=== PATIENT | male | born 1960 | race African-American/Black ===

== ENCOUNTER 2020-02-26 18:05 | Inpatient (IN) ==
[2020-02-26] MEDS ORDERED: SODIUM CHLORIDE 0.9% 1,000 ML IV STA ×2 (18:21→21:50)
[2020-02-26] MEDS ORDERED: LABETALOL 20 MG/4 ML SYRINGE IV STA ×2 (18:28→22:29)
[2020-02-26 20:22] LABS: Basophils % 0.2 % (0.0-0.8); Hematocrit 39.4 VOL% (42.0-52.0); Immature Granulocytes % 1.1 %; Immature Granulocytes Absolute 0.09 #; Lymphocytes # 0.4 10*3/uL (1.4-4.0); Lymphocytes % 4.7 % (21.2-54.2); Mean Corpuscular Volume 94.9 FL (87-102); Monocytes % 11.4 % (1.7-12.7); Neutrophils % 82.6 % (38.7-73.9); Platelet Count 130 T/CUMM (130-400); Red Blood Count 4.15 MC/CUMM (3.8-5.5); Red Cell Distribution Width 18.3 % (9.3-17.3); White Blood Count 8.2 T/CUMM (4-12)
[2020-02-26 20:38] LABS: Bacteria,Urine Occasional /HPF (Few); Bilirubin,Urine Negative (Negative); Blood, Urine Small mg/dL (Negative); Glucose,Urine (UA) >=500 mg/dL (Negative); Hyaline Casts,Urine 28 /LPF (0-3); Ketones,Urine 20 mg/dL (Negative); Mucus,Urine Occasional /LPF (Occasional); Nitrite,Urine Negative (Negative); Protein,Urine >=500 MG/DL; RBC,Urine 1 /HPF (0-4); Urine Appearance Slightly Hazy (Clear); Urine Color Yellow (Yellow); Urine Specific Gravity 1.016 (1.001-1.035); Urine Urobilinogen < 2.0 EU/DL (0.2-1.0); WBC,Urine 5 /HPF (0-6)
[2020-02-26] MEDS ORDERED: LORazepam 2 MG/1 ML VIAL ONE (20:40)
[2020-02-26] MEDS ORDERED: LORazepam 2 MG/1 ML VIAL IM STA (20:42)
[2020-02-26] MEDS ORDERED: LORazepam 2 MG/1 ML VIAL IV STA (20:43)
[2020-02-26 20:45] LABS: Barbiturates Screen,Urine Negative (Negative); Benzodiazepines Screen,Urine Positive (Negative); Cannabinoid Screen,Urine Positive (Negative); Opiate Screen,Urine Negative (Negative); Phencyclidine Screen,Urine Negative (Negative)
[2020-02-26 21:24] LABS: Alanine Aminotransferase 35 U/L (16-61); Albumin 3.7 G/DL (3.4-5.0); Alkaline Phosphatase 155 U/L (45-117); Aspartate Amino Transferase 42 U/L (0-37); Blood Urea Nitrogen 8 MG/DL (7-18); Calcium 8.9 MG/DL (8.5-10.1); Estimated Glom Filtration Rate 69 ML/MIN; Glucose 206 MG/DL (74-106); Total Protein 8.6 G/DL (6.4-8.3)
[2020-02-26 21:25] LABS: ABG Base Excess -1.7 MMOL/L (-2.5-2.5); ABG HCO3 22.9 MMOL/L (20-26); ABG Oxygen Saturation 92.2 % (95-100); ABG TCO2 31.8 MMOL/L (23-27)
[2020-02-26 21:30] LABS: ABG PH 7.072 (7.35-7.45)
[2020-02-26] MEDS ORDERED: ETOMIDATE 20 MG/10 ML VIAL IV STA (21:39)
[2020-02-26] MEDS ORDERED: ROCURONIUM 100 MG/10 ML VIAL IV ONE ×2 (21:39→21:43)
[2020-02-26] MEDS ORDERED: ETOMIDATE 20 MG/10 ML VIAL IV ONE (21:42)
[2020-02-26 22:02] LABS: Hypochromasia 2+; Macrocytosis Slight; Platelet Estimate Normal; Polychromasia Slight
[2020-02-26] MEDS ORDERED: ONDANSETRON 4 MG/2 ML VIAL IV PRN (22:50)
[2020-02-26] MEDS ORDERED: niCARdipine INJ 25 MG in SODIUM CHLORIDE 0.9% 240 ML IV PRN (23:11)
[2020-02-26 23:12] LABS: ABG HCO3 22.8 MMOL/L (20-26); ABG PCO2 32.9 MM HG (35-48); ABG PH 7.424 (7.35-7.45)
[2020-02-26 23:25] LABS: Phenytoin (Dilantin) 1.7 UG/ML (10-20); Salicylate < 2.8 MG/DL (2.8-20)
[2020-02-26] MEDS ORDERED: niCARdipine 25 MG/10 ML VIAL IV ONE (23:48)
[2020-02-26] MEDS: LACTATED RINGERS 1,000 ML IV SCH (23:58)
[2020-02-27] MEDS ORDERED: FOSPHENYTOIN 1,000 MG.PE in SODIUM CHLORIDE 0.9% 250 ML IV STA (00:04)
[2020-02-27] MEDS ORDERED: LORazepam 2 MG/1 ML VIAL IV PRN (00:04)
[2020-02-27] MEDS ORDERED: LORazepam 2 MG/1 ML VIAL IV STA (00:04)
[2020-02-27] MEDS ORDERED: FOSPHENYTOIN 500 MG.PE/10 ML VIAL ONE ×2 (02:00→02:11)
[2020-02-27] MEDS ORDERED: LACTATED RINGERS 1,000 ML IV ONE (03:57)
[2020-02-27 04:13] LABS: ABG Base Excess -3.4 MMOL/L (-2.5-2.5); ABG HCO3 19.2 MMOL/L (20-26); ABG Oxygen Saturation 94.9 % (95-100); ABG PCO2 27.3 MM HG (35-48); ABG PH 7.465 (7.35-7.45); ABG PO2 75.4 MM HG (80-95)
[2020-02-27 04:15] LABS: Basophils % 0.3 % (0.0-0.8); Hematocrit 36.1 VOL% (42.0-52.0); Hemoglobin 11.8 GM/DL (14.0-18.0); Immature Granulocytes % 0.3 %; Immature Granulocytes Absolute 0.01 #; Lymphocytes # 0.6 10*3/uL (1.4-4.0); Mean Corpuscular HGB Conc 32.7 GM/DL (32-36); Mean Corpuscular Volume 95.8 FL (87-102); Mean Platelet Volume 10.5 FL (9.6-12.0); Monocytes % 7.9 % (1.7-12.7); Neutrophils % 75.5 % (38.7-73.9); Platelet Count 112 T/CUMM (130-400); Red Blood Count 3.77 MC/CUMM (3.8-5.5); Red Cell Distribution Width 17.7 % (9.3-17.3); White Blood Count 3.9 T/CUMM (4-12)
[2020-02-27 04:18] LABS: INR 1.3; PT Patient Result 14.2 SECS (9.8-11.9)
[2020-02-27 04:23] LABS: Calcium 8.4 MG/DL (8.5-10.1); Osmolality,Calculated 275.5 MOS/KG (273-304); Total Protein 7.4 G/DL (6.4-8.3)
[2020-02-27 04:37] LABS: Band Neutrophils 7 % (0-10); Hypochromasia 1+; Lymphocytes 22 % (20-55); Macrocytosis Slight; Platelet Estimate Decreased; Segmented Neutrophils 64 % (50-85); Total Cells Counted 100
[2020-02-27] MEDS ORDERED: MIDAZOLAM 100 MG in SODIUM CHLORIDE 0.9% 80 ML IV PRN (09:00)
[2020-02-27] MEDS: ENOXAPARIN 40 MG/0.4 ML SYRINGE SUBCUT SCH (10:23)
[2020-02-27] MEDS: PANTOPRAZOLE 40 MG VIAL IV SCH (10:23)
[2020-02-27] MEDS ORDERED: PNEUMOCOCCAL VACCINE (13 VALENT) 0.5 ML SYRINGE IM ONE (11:05)
[2020-02-27] MEDS ORDERED: INFLUENZA VIRUS VACCINE 0.5 ML SYRINGE IM ONE (11:05)
[2020-02-27] MEDS: LACTATED RINGERS 1,000 ML IV SCH ×3 (11:07→21:55)
[2020-02-27] MEDS ORDERED: LORazepam 2 MG/1 ML VIAL IV ONE (15:31)
[2020-02-27] MEDS: ACETAMINOPHEN 325 MG TABLET PO PRN (15:59)
[2020-02-27] MEDS ORDERED: DEXTROSE 50% 25 GM/50 ML VIAL IV PRN (16:08)
[2020-02-27] MEDS ORDERED: GLUCAGON 1 MG VIAL IM PRN (16:08)
[2020-02-27] MEDS: INSULIN REGULAR 100 UNIT/ML SUBCUT SCH (17:14)
[2020-02-28] MEDS: INSULIN REGULAR 100 UNIT/ML SUBCUT SCH ×4 (00:38→17:20)
[2020-02-28 03:58] LABS: Basophils % 0.4 % (0.0-0.8); Hematocrit 32.7 VOL% (42.0-52.0); Hemoglobin 10.4 GM/DL (14.0-18.0); Immature Granulocytes % 0.5 %; Immature Granulocytes Absolute 0.05 #; Lymphocytes # 1.1 10*3/uL (1.4-4.0); Lymphocytes % 11.7 % (21.2-54.2); Mean Corpuscular HGB Conc 31.8 GM/DL (32-36); Mean Platelet Volume 9.6 FL (9.6-12.0); Monocytes % 9.4 % (1.7-12.7); Platelet Count 111 T/CUMM (130-400); Red Blood Count 3.37 MC/CUMM (3.8-5.5); Red Cell Distribution Width 18.8 % (9.3-17.3); White Blood Count 9.7 T/CUMM (4-12)
[2020-02-28 04:32] LABS: Allen Test Positive; Pt O2 Delivery Device Ventilator
[2020-02-28 04:34] LABS: ABG Base Excess 0.8 MMOL/L (-2.5-2.5); ABG HCO3 24.1 MMOL/L (20-26); ABG Oxygen Saturation 97.5 % (95-100); ABG PCO2 33.5 MM HG (35-48); ABG PH 7.474 (7.35-7.45); ABG PO2 99.3 MM HG (80-95); ABG TCO2 25.1 MMOL/L (23-27)
[2020-02-28 04:40] LABS: Calcium 8.4 MG/DL (8.5-10.1); Osmolality,Calculated 272.8 MOS/KG (273-304)
[2020-02-28 04:48] LABS: Hypochromasia Slight; Platelet Estimate Normal
[2020-02-28] MEDS: LACTATED RINGERS 1,000 ML IV SCH ×2 (06:30→17:05)
[2020-02-28] MEDS: ENOXAPARIN 40 MG/0.4 ML SYRINGE SUBCUT SCH (10:08)
[2020-02-28] MEDS: PANTOPRAZOLE 40 MG VIAL IV SCH (10:08)
[2020-02-28] MEDS ORDERED: MAGNESIUM SULF RIDER 4 GM in PREMIX 1 EACH IV ONE (12:02)
[2020-02-29] MEDS: INSULIN REGULAR 100 UNIT/ML SUBCUT SCH ×5 (01:06→23:43)
[2020-02-29] MEDS: LACTATED RINGERS 1,000 ML IV SCH ×2 (03:00→13:05)
[2020-02-29 04:45] LABS: ABG Base Excess 1.8 MMOL/L (-2.5-2.5); ABG HCO3 24.9 MMOL/L (20-26); ABG Oxygen Saturation 98.7 % (95-100); ABG PCO2 33.3 MM HG (35-48); ABG PH 7.492 (7.35-7.45); ABG PO2 137.9 MM HG (80-95); ABG TCO2 25.9 MMOL/L (23-27); Allen Test Positive; Pt O2 Delivery Device Ventilator
[2020-02-29 04:56] LABS: Basophils % 0.2 % (0.0-0.8); Eosinophils % 0.1 % (0.00-10.9); Hemoglobin 9.2 GM/DL (14.0-18.0); Immature Granulocytes % 2.5 %; Immature Granulocytes Absolute 0.22 #; Lymphocytes # 0.9 10*3/uL (1.4-4.0); Lymphocytes % 10.5 % (21.2-54.2); Mean Corpuscular HGB Conc 31.7 GM/DL (32-36); Mean Corpuscular Volume 96.3 FL (87-102); Mean Platelet Volume 10.5 FL (9.6-12.0); Neutrophils % 75.7 % (38.7-73.9); Platelet Count 121 T/CUMM (130-400); Red Blood Count 3.01 MC/CUMM (3.8-5.5); Red Cell Distribution Width 18.4 % (9.3-17.3); White Blood Count 8.9 T/CUMM (4-12)
[2020-02-29 05:15] LABS: Calcium 8.9 MG/DL (8.5-10.1)
[2020-02-29 05:38] LABS: Anisocytosis 1+; Atypical Lymphocytes Few; Band Neutrophils 1 % (0-10); Hypochromasia 1+; Lymphocytes 10 % (20-55); Macrocytosis 1+; Platelet Estimate Adequate; Segmented Neutrophils 79 % (50-85); Total Cells Counted 100
[2020-02-29] MEDS: PANTOPRAZOLE 40 MG VIAL IV SCH (08:48)
[2020-02-29] MEDS: ENOXAPARIN 40 MG/0.4 ML SYRINGE SUBCUT SCH (08:48)
[2020-02-29] MEDS: POTASSIUM CHLORIDE 20 MEQ/15 ML UDCUP PER TUBE PRN ×4 (08:49→17:29)
[2020-02-29] MEDS ORDERED: FUROSEMIDE 40 MG/4 ML VIAL IV ONE (12:13)
[2020-02-29] MEDS ORDERED: MORPHINE 4 MG/1 ML VIAL IV PRN (12:32)
[2020-02-29] MEDS ORDERED: ALBUTEROL/IPRATROPIUM 3 ML NEB RESP TX STA (14:18)
[2020-02-29] MEDS ORDERED: RACEPINEPHRINE 0.5 ML NEB RESP TX ONE (14:50)
[2020-02-29] MEDS ORDERED: HYDROmorphone 2 MG/1 ML VIAL IV PRN (15:48)
[2020-02-29] MEDS ORDERED: POTASSIUM PHOSPHATE 30 MMOL in SODIUM CHLORIDE 0.9% 250 ML IV ONE (17:00)
[2020-02-29] MEDS: ACETAMINOPHEN 325 MG TABLET PO PRN (17:30)
[2020-02-29] MEDS: GLYCOPYRROLATE 1 MG TABLET PO SCH (20:10)
[2020-03-01] MEDS: LACTATED RINGERS 1,000 ML IV SCH ×3 (01:25→21:31)
[2020-03-01] MEDS: ALBUTEROL/IPRATROPIUM 3 ML NEB RESP TX SCH ×4 (02:39→19:26)
[2020-03-01 04:16] LABS: Basophils % 0.4 % (0.0-0.8); Hematocrit 34.8 VOL% (42.0-52.0); Hemoglobin 11.3 GM/DL (14.0-18.0); Immature Granulocytes % 0.2 %; Immature Granulocytes Absolute 0.01 #; Lymphocytes # 0.4 10*3/uL (1.4-4.0); Lymphocytes % 7.8 % (21.2-54.2); Mean Corpuscular HGB Conc 32.5 GM/DL (32-36); Mean Corpuscular Volume 95.3 FL (87-102); Monocytes % 14.8 % (1.7-12.7); Neutrophils % 76.8 % (38.7-73.9); Platelet Count 153 T/CUMM (130-400); Red Blood Count 3.65 MC/CUMM (3.8-5.5); Red Cell Distribution Width 17.4 % (9.3-17.3); White Blood Count 4.7 T/CUMM (4-12)
[2020-03-01 04:24] LABS: ABG Oxygen Saturation 92.6 % (95-100); ABG PCO2 36.5 MM HG (35-48); ABG PO2 59.9 MM HG (80-95); Allen Test Positive; Pt O2 Delivery Device BIPAP
[2020-03-01 04:46] LABS: Band Neutrophils 5 % (0-10); Eosinophils 1 % (0-10); Hypochromasia 1+; Lymphocytes 7 % (20-55); Platelet Estimate Adequate; Segmented Neutrophils 68 % (50-85); Total Cells Counted 100
[2020-03-01 04:47] LABS: Calcium 8.9 MG/DL (8.5-10.1); Macrocytosis Slight
[2020-03-01] MEDS: INSULIN REGULAR 100 UNIT/ML SUBCUT SCH ×3 (05:24→17:37)
[2020-03-01] MEDS ORDERED: MAGNESIUM SULF RIDER 2 GM in PREMIX 1 EACH IV ONE (07:50)
[2020-03-01] MEDS: ACETAMINOPHEN 325 MG TABLET PO PRN (08:30)
[2020-03-01] MEDS: GLYCOPYRROLATE 1 MG TABLET PO SCH ×2 (08:30→20:41)
[2020-03-01] MEDS: PANTOPRAZOLE 40 MG VIAL IV SCH (08:30)
[2020-03-01] MEDS: ENOXAPARIN 40 MG/0.4 ML SYRINGE SUBCUT SCH (08:30)
[2020-03-01] MEDS: THIAMINE 100 MG TABLET PO SCH (08:31)
[2020-03-01] MEDS: POTASSIUM CHLORIDE 20 MEQ/15 ML UDCUP PER TUBE PRN (12:59)
[2020-03-01] MEDS: DIAZEPAM 2 MG TABLET PO SCH ×2 (12:59→20:41)
[2020-03-01] MEDS: LABETALOL 20 MG/4 ML SYRINGE IV PRN (14:12)
[2020-03-01] MEDS: MORPHINE 4 MG/1 ML VIAL IV PRN (16:38)
[2020-03-01] MEDS ORDERED: DIGOXIN 0.5 MG/2 ML AMP IV PRN (18:32)
[2020-03-02] MEDS: ALBUTEROL/IPRATROPIUM 3 ML NEB RESP TX SCH ×4 (01:24→19:45)
[2020-03-02] MEDS ORDERED: chlordiazePOXIDE 25 MG CAPSULE PO PRN (03:19)
[2020-03-02] MEDS ORDERED: METOPROLOL TARTRATE 5 MG/5 ML VIAL IV SCH (03:26)
[2020-03-02] MEDS: chlordiazePOXIDE 25 MG CAPSULE PO SCH ×4 (03:49→20:06)
[2020-03-02] MEDS: LORazepam 2 MG/1 ML VIAL IV PRN ×2 (03:50→20:55)
[2020-03-02 03:57] LABS: Basophils # 0.1 10*3/uL (0.0-0.2); Basophils % 1.5 % (0.0-0.8); Eosinophils % 0.2 % (0.00-10.9); Hematocrit 33.6 VOL% (42.0-52.0); Hemoglobin 11.3 GM/DL (14.0-18.0); Immature Granulocytes % 0.2 %; Immature Granulocytes Absolute 0.01 #; Lymphocytes # 0.6 10*3/uL (1.4-4.0); Mean Corpuscular HGB Conc 33.6 GM/DL (32-36); Mean Corpuscular Volume 91.1 FL (87-102); Mean Platelet Volume 10.3 FL (9.6-12.0); Neutrophils % 68.1 % (38.7-73.9); Platelet Count 166 T/CUMM (130-400); Red Blood Count 3.69 MC/CUMM (3.8-5.5); Red Cell Distribution Width 17.5 % (9.3-17.3); White Blood Count 4.7 T/CUMM (4-12)
[2020-03-02 04:12] LABS: Calcium 9.4 MG/DL (8.5-10.1)
[2020-03-02 04:24] LABS: Band Neutrophils 14 % (0-10); Hypochromasia 1+; Lymphocytes 11 % (20-55); Platelet Estimate Adequate; Segmented Neutrophils 59 % (50-85); Total Cells Counted 100
[2020-03-02 04:25] LABS: Macrocytosis Slight
[2020-03-02 04:26] LABS: ABG Base Excess 2.7 MMOL/L (-2.5-2.5); ABG HCO3 26.7 MMOL/L (20-26); ABG Oxygen Saturation 92.7 % (95-100); ABG PCO2 34.1 MM HG (35-48); ABG PH 7.486 (7.35-7.45); ABG PO2 65.9 MM HG (80-95); ABG TCO2 23.2 MMOL/L (23-27); Allen Test Positive; Pt O2 Delivery Device BIPAP
[2020-03-02] MEDS: INSULIN REGULAR 100 UNIT/ML SUBCUT SCH ×4 (05:24→17:12)
[2020-03-02] MEDS ORDERED: MAGNESIUM SULF RIDER 2 GM in PREMIX 1 EACH IV ONE (07:45)
[2020-03-02] MEDS ORDERED: FUROSEMIDE 40 MG/4 ML VIAL IV ONE (07:48)
[2020-03-02] MEDS: LACTATED RINGERS 1,000 ML IV SCH ×2 (08:01→17:25)
[2020-03-02] MEDS: ENOXAPARIN 40 MG/0.4 ML SYRINGE SUBCUT SCH (08:01)
[2020-03-02] MEDS: PANTOPRAZOLE 40 MG VIAL IV SCH (08:01)
[2020-03-02] MEDS: GLYCOPYRROLATE 1 MG TABLET PO SCH ×2 (08:02→20:06)
[2020-03-02] MEDS: POTASSIUM CHLORIDE 20 MEQ/15 ML UDCUP PER TUBE PRN ×3 (08:02→17:25)
[2020-03-02] MEDS: ACETAMINOPHEN 325 MG TABLET PO PRN ×2 (08:02→20:55)
[2020-03-02] MEDS: LABETALOL 20 MG/4 ML SYRINGE IV PRN (08:02)
[2020-03-02] MEDS: THIAMINE 100 MG TABLET PO SCH (08:03)
[2020-03-02] MEDS: DIAZEPAM 2 MG TABLET PO SCH ×2 (08:03→20:06)
[2020-03-02] MEDS: METOPROLOL TARTRATE 25 MG TABLET PO SCH ×2 (08:16→20:06)
[2020-03-02] MEDS ORDERED: IBUPROFEN 100 MG/5 ML UDCUP PO PRN (10:03)
[2020-03-02] MEDS: MORPHINE 4 MG/1 ML VIAL IV PRN (14:25)
[2020-03-02] MEDS ORDERED: LORazepam 2 MG/1 ML VIAL ONE (20:54)
[2020-03-03] MEDS: INSULIN REGULAR 100 UNIT/ML SUBCUT SCH ×5 (00:06→23:19)
[2020-03-03 00:50] LABS: Calcium 9.3 MG/DL (8.5-10.1); Osmolality,Calculated 275.7 MOS/KG (273-304)
[2020-03-03 01:02] LABS: Basophils % 0.2 % (0.0-0.8); Eosinophils % 0.1 % (0.00-10.9); Hematocrit 31.4 VOL% (42.0-52.0); Immature Granulocytes % 0.5 %; Immature Granulocytes Absolute 0.05 #; Lymphocytes # 0.5 10*3/uL (1.4-4.0); Lymphocytes % 5.7 % (21.2-54.2); Mean Corpuscular HGB Conc 31.8 GM/DL (32-36); Mean Corpuscular Volume 93.5 FL (87-102); Mean Platelet Volume 10.6 FL (9.6-12.0); Monocytes % 7.1 % (1.7-12.7); Neutrophils % 86.4 % (38.7-73.9); Platelet Count 221 T/CUMM (130-400); Red Blood Count 3.36 MC/CUMM (3.8-5.5); Red Cell Distribution Width 17.8 % (9.3-17.3); White Blood Count 9.5 T/CUMM (4-12)
[2020-03-03 01:31] LABS: Band Neutrophils 5 % (0-10); Hypochromasia Slight; Lymphocytes 6 % (20-55); Platelet Estimate Normal; Segmented Neutrophils 86 % (50-85); Total Cells Counted 100
[2020-03-03] MEDS: ALBUTEROL/IPRATROPIUM 3 ML NEB RESP TX SCH ×2 (01:41→07:32)
[2020-03-03] MEDS: ACETAMINOPHEN 325 MG TABLET PO PRN ×4 (01:51→17:25)
[2020-03-03] MEDS: POTASSIUM CHLORIDE 20 MEQ/15 ML UDCUP PER TUBE PRN (01:51)
[2020-03-03 03:40] LABS: ABG Base Excess 2.1 MMOL/L (-2.5-2.5); ABG HCO3 27.5 MMOL/L (20-26); ABG Oxygen Saturation 97.7 % (95-100); ABG PCO2 46.2 MM HG (35-48); ABG PH 7.392 (7.35-7.45); ABG PO2 110.1 MM HG (80-95); ABG TCO2 28.9 MMOL/L (23-27)
[2020-03-03] MEDS: LACTATED RINGERS 1,000 ML IV SCH (06:49)
[2020-03-03] MEDS: ENOXAPARIN 40 MG/0.4 ML SYRINGE SUBCUT SCH (08:29)
[2020-03-03] MEDS: chlordiazePOXIDE 25 MG CAPSULE PO SCH (08:29)
[2020-03-03] MEDS: DIAZEPAM 2 MG TABLET PO SCH (08:29)
[2020-03-03] MEDS: METOPROLOL TARTRATE 25 MG TABLET PO SCH (08:29)
[2020-03-03] MEDS: GLYCOPYRROLATE 1 MG TABLET PO SCH (08:29)
[2020-03-03] MEDS: THIAMINE 100 MG TABLET PO SCH (08:29)
[2020-03-03] MEDS: PANTOPRAZOLE 40 MG VIAL IV SCH (08:30)
[2020-03-03] MEDS ORDERED: FUROSEMIDE 40 MG/4 ML VIAL IV ONE ×2 (08:32→15:24)
[2020-03-03] MEDS ORDERED: ALBUTEROL/IPRATROPIUM 3 ML NEB RESP TX PRN (08:39)
[2020-03-03] MEDS: FOLIC ACID 1 MG TABLET PO SCH (09:32)
[2020-03-03] MEDS: MULTIVITAMIN (BEROCCA) TABLET PO SCH (09:32)
[2020-03-03] MEDS: PIPERACILLIN/TAZOBACTAM 3,375 MG in SODIUM CHLORIDE 0.9% 100 ML IV SCH ×2 (09:32→16:02)
[2020-03-03 10:54] LABS: Bacteria,Urine Occasional /HPF (Few); Bilirubin,Urine Negative (Negative); Blood, Urine Moderate mg/dL (Negative); Glucose,Urine (UA) Negative (Negative); Ketones,Urine Negative (Negative); Nitrite,Urine Negative (Negative); Protein,Urine 30 MG/DL; RBC,Urine 41 /HPF (0-4); Urine Appearance CLEAR (Clear); Urine Color Yellow (Yellow); Urine Specific Gravity 1.012 (1.001-1.035); WBC,Urine 14 /HPF (0-6)
[2020-03-03] MEDS ORDERED: chlordiazePOXIDE 10 MG CAPSULE PO PRN (11:22)
[2020-03-03] MEDS ORDERED: LABETALOL 20 MG/4 ML SYRINGE IV ONE (13:45)
[2020-03-03] MEDS ORDERED: LABETALOL 20 MG/4 ML SYRINGE IV PRN (15:01)
[2020-03-03] MEDS: VANCOMYCIN INJ 1,000 MG in SODIUM CHLORIDE 0.9% 250 ML IV SCH (16:01)
[2020-03-03] MEDS: METOPROLOL TARTRATE 5 MG/5 ML VIAL IV SCH ×2 (17:25→23:09)
[2020-03-03] MEDS ORDERED: IBUPROFEN 100 MG/5 ML UDCUP PO PRN (18:25)
[2020-03-03] MEDS ORDERED: METOPROLOL TARTRATE 50 MG TABLET PO SCH (21:00)
[2020-03-03] MEDS: LORazepam 2 MG/1 ML VIAL IV PRN (22:03)
[2020-03-04] MEDS: PIPERACILLIN/TAZOBACTAM 3,375 MG in SODIUM CHLORIDE 0.9% 100 ML IV SCH ×3 (00:20→17:12)
[2020-03-04] MEDS ORDERED: SUCCINYLCHOLINE 200 MG/10 ML VIAL IV ONE (00:37)
[2020-03-04] MEDS ORDERED: ETOMIDATE 20 MG/10 ML VIAL IV ONE ×2 (00:39→00:40)
[2020-03-04] MEDS ORDERED: SUCCINYLCHOLINE 200 MG/10 ML VIAL ONE (00:39)
[2020-03-04 01:54] LABS: ABG Base Excess 6.5 MMOL/L (-2.5-2.5); ABG HCO3 30.3 MMOL/L (20-26); ABG Oxygen Saturation 94.4 % (95-100); ABG PCO2 44.9 MM HG (35-48); ABG PH 7.451 (7.35-7.45); ABG PO2 72.9 MM HG (80-95); ABG TCO2 28.6 MMOL/L (23-27); Allen Test Positive; Pt O2 Delivery Device Ventilator
[2020-03-04] MEDS: VANCOMYCIN INJ 1,000 MG in SODIUM CHLORIDE 0.9% 250 ML IV SCH ×2 (03:32→16:03)
[2020-03-04] MEDS: METOPROLOL TARTRATE 5 MG/5 ML VIAL IV SCH ×5 (03:33→20:50)
[2020-03-04 04:14] LABS: ABG Base Excess 7.1 MMOL/L (-2.5-2.5); ABG HCO3 30.5 MMOL/L (20-26); ABG Oxygen Saturation 99.1 % (95-100); ABG PCO2 38.8 MM HG (35-48); ABG PH 7.514 (7.35-7.45); ABG PO2 147.8 MM HG (80-95); ABG TCO2 31.7 MMOL/L (23-27); Allen Test Positive; Pt O2 Delivery Device Ventilator
[2020-03-04 04:58] LABS: Basophils # 0.1 10*3/uL (0.0-0.2); Basophils % 0.4 % (0.0-0.8); Hematocrit 27.7 VOL% (42.0-52.0); Hemoglobin 9.1 GM/DL (14.0-18.0); Immature Granulocytes Absolute 0.13 #; Lymphocytes # 0.6 10*3/uL (1.4-4.0); Lymphocytes % 4.3 % (21.2-54.2); Mean Corpuscular HGB Conc 32.9 GM/DL (32-36); Mean Platelet Volume 10.3 FL (9.6-12.0); Monocytes % 8.9 % (1.7-12.7); Neutrophils % 85.4 % (38.7-73.9); Platelet Count 294 T/CUMM (130-400); Red Blood Count 3.01 MC/CUMM (3.8-5.5); Red Cell Distribution Width 17.7 % (9.3-17.3); White Blood Count 13.4 T/CUMM (4-12)
[2020-03-04 05:13] LABS: Calcium 9.2 MG/DL (8.5-10.1); Osmolality,Calculated 282.3 MOS/KG (273-304)
[2020-03-04 05:14] LABS: Risk Ratio 4.86; VLDL CHOLESTEROL 21.4 MG/DL
[2020-03-04 05:15] LABS: Albumin 1.6 G/DL (3.4-5.0); Calcium 9.4 MG/DL (8.5-10.1); Osmolality,Calculated 282.3 MOS/KG (273-304); Total Protein 6.3 G/DL (6.4-8.3)
[2020-03-04 05:20] LABS: Hypochromasia 1+; Lymphocytes 5 % (20-55); Microcytosis Slight; Platelet Estimate Adequate; Segmented Neutrophils 86 % (50-85); Total Cells Counted 100
[2020-03-04] MEDS: INSULIN REGULAR 100 UNIT/ML SUBCUT SCH ×3 (05:51→17:58)
[2020-03-04] MEDS: FOLIC ACID 1 MG TABLET PO SCH (08:25)
[2020-03-04] MEDS: MULTIVITAMIN (BEROCCA) TABLET PO SCH (08:25)
[2020-03-04] MEDS: ENOXAPARIN 40 MG/0.4 ML SYRINGE SUBCUT SCH (08:26)
[2020-03-04] MEDS: PANTOPRAZOLE 40 MG VIAL IV SCH (08:26)
[2020-03-04] MEDS: THIAMINE 100 MG TABLET PO SCH (08:26)
[2020-03-04] MEDS: POTASSIUM CHLORIDE 20 MEQ/15 ML UDCUP PER TUBE PRN ×4 (08:27→15:20)
[2020-03-04] MEDS: ACETAMINOPHEN 325 MG TABLET PO PRN ×2 (08:27→13:10)
[2020-03-04] MEDS: DEXT 5% NACL 0.45% KCL 20 MEQ 20 MEQ/1,000 ML BAG IV SCH ×2 (09:39→18:29)
[2020-03-04] MEDS ORDERED: LACTATED RINGERS 1,000 ML IV ONE ×2 (09:54→10:00)
[2020-03-05] MEDS: PIPERACILLIN/TAZOBACTAM 3,375 MG in SODIUM CHLORIDE 0.9% 100 ML IV SCH ×3 (00:03→16:30)
[2020-03-05] MEDS: METOPROLOL TARTRATE 5 MG/5 ML VIAL IV SCH ×6 (00:03→20:20)
[2020-03-05] MEDS: INSULIN REGULAR 100 UNIT/ML SUBCUT SCH ×4 (00:04→18:13)
[2020-03-05] MEDS: VANCOMYCIN INJ 1,000 MG in SODIUM CHLORIDE 0.9% 250 ML IV SCH (03:45)
[2020-03-05] MEDS: DEXT 5% NACL 0.45% KCL 20 MEQ 20 MEQ/1,000 ML BAG IV SCH ×3 (04:27→15:21)
[2020-03-05 04:38] LABS: Basophils % 0.2 % (0.0-0.8); Eosinophils % 0.1 % (0.00-10.9); Hematocrit 25.8 VOL% (42.0-52.0); Hemoglobin 8.2 GM/DL (14.0-18.0); Immature Granulocytes % 1.3 %; Immature Granulocytes Absolute 0.14 #; Lymphocytes # 0.7 10*3/uL (1.4-4.0); Lymphocytes % 6.7 % (21.2-54.2); Mean Corpuscular HGB Conc 31.8 GM/DL (32-36); Mean Corpuscular Volume 94.9 FL (87-102); Mean Platelet Volume 10.4 FL (9.6-12.0); Monocytes % 11.1 % (1.7-12.7); Neutrophils % 80.6 % (38.7-73.9); Platelet Count 311 T/CUMM (130-400); Red Blood Count 2.72 MC/CUMM (3.8-5.5); Red Cell Distribution Width 18.6 % (9.3-17.3); White Blood Count 10.5 T/CUMM (4-12)
[2020-03-05 04:52] LABS: Calcium 9.5 MG/DL (8.5-10.1)
[2020-03-05 05:07] LABS: Lymphocytes 11 % (20-55); Segmented Neutrophils 78 % (50-85); Total Cells Counted 100
[2020-03-05 05:07] LABS: Allen Test Positive; Pt O2 Delivery Device Ventilator
[2020-03-05 05:08] LABS: Hypochromasia 2+; Microcytosis 1+; Platelet Estimate Adequate
[2020-03-05 05:10] LABS: ABG Base Excess 2.6 MMOL/L (-2.5-2.5); ABG HCO3 26.7 MMOL/L (20-26); ABG Oxygen Saturation 97.5 % (95-100); ABG PCO2 40.8 MM HG (35-48); ABG PH 7.429 (7.35-7.45); ABG PO2 97.9 MM HG (80-95); ABG TCO2 25.3 MMOL/L (23-27)
[2020-03-05] MEDS: MULTIVITAMIN (BEROCCA) TABLET PO SCH (09:13)
[2020-03-05] MEDS: FOLIC ACID 1 MG TABLET PO SCH (09:13)
[2020-03-05] MEDS: THIAMINE 100 MG TABLET PO SCH (09:14)
[2020-03-05] MEDS: ENOXAPARIN 40 MG/0.4 ML SYRINGE SUBCUT SCH (09:18)
[2020-03-05] MEDS: PANTOPRAZOLE 40 MG VIAL IV SCH ×2 (09:27→16:46)
[2020-03-05] MEDS ORDERED: POTASSIUM PHOSPHATE 30 MMOL in SODIUM CHLORIDE 0.9% 250 ML IV ONE (10:00)
[2020-03-05] MEDS: ALBUTEROL/IPRATROPIUM 3 ML NEB RESP TX SCH ×3 (10:33→19:22)
[2020-03-05] MEDS: ACETAMINOPHEN 325 MG TABLET PO PRN (11:22)
[2020-03-05 13:48] LABS: Hematocrit 20.3 VOL% (42.0-52.0); Hemoglobin 6.5 GM/DL (14.0-18.0)
[2020-03-05] MEDS: AZITHROMYCIN INJ 500 MG in SODIUM CHLORIDE 0.9% 250 ML IV SCH (14:30)
[2020-03-05] MEDS ORDERED: SODIUM CHLORIDE 0.9% 1,000 ML IV PRN (16:12)
[2020-03-05 17:00] LABS: % Iron Saturation 5.2 % (18-50); Ferritin 254.4 ng/ml (26-388)
[2020-03-05 17:10] LABS: Folate 5.2 NG/ML (5.4-24.0)
[2020-03-05 21:10] LABS: Hematocrit 27.3 VOL% (42.0-52.0); Hemoglobin 8.3 GM/DL (14.0-18.0)
[2020-03-06] MEDS: METOPROLOL TARTRATE 5 MG/5 ML VIAL IV SCH ×4 (00:01→13:11)
[2020-03-06] MEDS: ALBUTEROL/IPRATROPIUM 3 ML NEB RESP TX SCH ×7 (00:22→23:54)
[2020-03-06 00:41] LABS: Hematocrit 26.8 VOL% (42.0-52.0); Hemoglobin 8.4 GM/DL (14.0-18.0)
[2020-03-06] MEDS: PIPERACILLIN/TAZOBACTAM 3,375 MG in SODIUM CHLORIDE 0.9% 100 ML IV SCH ×3 (01:07→17:22)
[2020-03-06] MEDS: MORPHINE 4 MG/1 ML VIAL IV PRN ×2 (01:23→08:09)
[2020-03-06 03:19] LABS: ABG Base Excess 0.8 MMOL/L (-2.5-2.5); ABG HCO3 25.1 MMOL/L (20-26); ABG Oxygen Saturation 95.2 % (95-100); ABG PCO2 37.1 MM HG (35-48); ABG PH 7.435 (7.35-7.45); ABG PO2 75.1 MM HG (80-95); ABG TCO2 23.4 MMOL/L (23-27); Allen Test Positive; Pt O2 Delivery Device Ventilator
[2020-03-06] MEDS: DEXT 5% NACL 0.45% KCL 20 MEQ 20 MEQ/1,000 ML BAG IV SCH ×2 (04:00→17:05)
[2020-03-06 04:05] LABS: Basophils % 0.2 % (0.0-0.8); Eosinophils % 0.4 % (0.00-10.9); Hematocrit 26.4 VOL% (42.0-52.0); Hemoglobin 8.1 GM/DL (14.0-18.0); Immature Granulocytes % 1.5 %; Immature Granulocytes Absolute 0.14 #; Lymphocytes # 0.9 10*3/uL (1.4-4.0); Lymphocytes % 9.2 % (21.2-54.2); Mean Corpuscular HGB Conc 30.7 GM/DL (32-36); Mean Corpuscular Volume 98.1 FL (87-102); Mean Platelet Volume 10.2 FL (9.6-12.0); Monocytes % 13.3 % (1.7-12.7); Neutrophils % 75.4 % (38.7-73.9); Platelet Count 212 T/CUMM (130-400); Red Blood Count 2.69 MC/CUMM (3.8-5.5); Red Cell Distribution Width 18.9 % (9.3-17.3); White Blood Count 9.4 T/CUMM (4-12)
[2020-03-06 04:27] LABS: Eosinophils 1 % (0-10); Hypochromasia 1+; Lymphocytes 7 % (20-55); Microcytosis 1+; Platelet Estimate Adequate; Segmented Neutrophils 85 % (50-85); Total Cells Counted 100
[2020-03-06 04:29] LABS: Albumin 1.5 G/DL (3.4-5.0); Bilirubin,Total 0.7 MG/DL (0.2-1.0); Calcium 8.9 MG/DL (8.5-10.1); Osmolality,Calculated 284.8 MOS/KG (273-304); Total Protein 5.5 G/DL (6.4-8.3)
[2020-03-06] MEDS: PANTOPRAZOLE 40 MG VIAL IV SCH ×2 (04:54→17:20)
[2020-03-06] MEDS: INSULIN REGULAR 100 UNIT/ML SUBCUT SCH ×4 (05:34→18:59)
[2020-03-06] MEDS: FOLIC ACID 1 MG TABLET PO SCH (08:16)
[2020-03-06] MEDS: ACETAMINOPHEN 325 MG TABLET PO PRN (08:17)
[2020-03-06] MEDS: THIAMINE 100 MG TABLET PO SCH (08:17)
[2020-03-06] MEDS: MULTIVITAMIN (BEROCCA) TABLET PO SCH (08:19)
[2020-03-06] MEDS ORDERED: HEPARIN/NACL 0.9% 2 UNITS/ML 500 ML IV ONE (10:07)
[2020-03-06] MEDS: HEPARIN/NACL 0.9% 2 UNITS/ML 500 ML IV SCH (13:11)
[2020-03-06] MEDS: AZITHROMYCIN INJ 500 MG in SODIUM CHLORIDE 0.9% 250 ML IV SCH (13:16)
[2020-03-06] MEDS: LORazepam 2 MG/1 ML VIAL IV PRN (14:30)
[2020-03-06] MEDS ORDERED: LACTATED RINGERS 500 ML IV ONE (17:07)
[2020-03-06] MEDS: NOREPINEPHRINE 8 MG in SODIUM CHLORIDE 0.9% 242 ML IV PRN (17:07)
[2020-03-06] MEDS ORDERED: fentaNYL INJ 1,250 MCG in SODIUM CHLORIDE 0.9% 225 ML IV PRN (20:21)
[2020-03-06] MEDS ORDERED: MIDAZOLAM 100 MG in SODIUM CHLORIDE 0.9% 80 ML IV PRN (20:21)
[2020-03-07] MEDS: INSULIN REGULAR 100 UNIT/ML SUBCUT SCH ×4 (01:44→17:25)
[2020-03-07] MEDS: PIPERACILLIN/TAZOBACTAM 3,375 MG in SODIUM CHLORIDE 0.9% 100 ML IV SCH ×3 (01:45→16:53)
[2020-03-07] MEDS: ALBUTEROL/IPRATROPIUM 3 ML NEB RESP TX SCH ×4 (03:00→14:58)
[2020-03-07 04:38] VITALS: BP 88/64
[2020-03-07 04:49] LABS: ABG Base Excess -9.7 MMOL/L (-2.5-2.5); ABG HCO3 16.5 MMOL/L (20-26); ABG PCO2 50.3 MM HG (35-48); ABG PO2 88.4 MM HG (80-95); ABG TCO2 17.9 MMOL/L (23-27); Allen Test Positive; Pt O2 Delivery Device Ventilator
[2020-03-07 04:54] LABS: ABG PH 7.174 (7.35-7.45)
[2020-03-07] MEDS: PANTOPRAZOLE 40 MG VIAL IV SCH ×2 (04:57→16:53)
[2020-03-07 05:08] LABS: Basophils # 0.1 10*3/uL (0.0-0.2); Basophils % 0.4 % (0.0-0.8); Eosinophils % 0.1 % (0.00-10.9); Hematocrit 26.5 VOL% (42.0-52.0); Hemoglobin 7.9 GM/DL (14.0-18.0); Immature Granulocytes % 4.3 %; Immature Granulocytes Absolute 0.59 #; Lymphocytes # 1.6 10*3/uL (1.4-4.0); Lymphocytes % 11.7 % (21.2-54.2); Mean Corpuscular HGB Conc 29.8 GM/DL (32-36); Mean Corpuscular Volume 103.5 FL (87-102); Monocytes % 10.6 % (1.7-12.7); NRBC # 0.03 10*3/uL; Neutrophils % 72.9 % (38.7-73.9); Platelet Count 192 T/CUMM (130-400); Red Blood Count 2.56 MC/CUMM (3.8-5.5); Red Cell Distribution Width 18.6 % (9.3-17.3); White Blood Count 13.7 T/CUMM (4-12)
[2020-03-07] MEDS ORDERED: SODIUM BICARBONATE 50 MEQ/50 ML VIAL IV ONE ×5 (05:09→15:40)
[2020-03-07 05:38] LABS: Calcium 8.6 MG/DL (8.5-10.1); Osmolality,Calculated 291.1 MOS/KG (273-304)
[2020-03-07 05:46] LABS: Anisocytosis 1+; Band Neutrophils 7 % (0-10); Hypochromasia 1+; Lymphocytes 8 % (20-55); Microcytosis 1+; Myelocytes 1 %; Nucleated Red Blood Cells 2 (0-5); Segmented Neutrophils 76 % (50-85); Total Cells Counted 100
[2020-03-07 05:47] LABS: Platelet Estimate Adequate
[2020-03-07] MEDS ORDERED: NOREPINEPHRINE 4 MG/4 ML VIAL IV ONE (07:28)
[2020-03-07] MEDS: NOREPINEPHRINE 8 MG in SODIUM CHLORIDE 0.9% 242 ML IV PRN ×2 (07:32→14:05)
[2020-03-07] MEDS: FOLIC ACID 1 MG TABLET PO SCH (09:00)
[2020-03-07] MEDS: MULTIVITAMIN (BEROCCA) TABLET PO SCH (09:00)
[2020-03-07] MEDS: THIAMINE 100 MG TABLET PO SCH (09:02)
[2020-03-07] MEDS ORDERED: SODIUM CHLORIDE 0.9% 500 ML IV ONE (10:33)
[2020-03-07] MEDS: SODIUM BICARB INJ 100 MEQ in DEXTROSE 5% 1,000 ML IV SCH ×2 (10:47→17:20)
[2020-03-07] MEDS: DEXT 5% NACL 0.45% KCL 20 MEQ 20 MEQ/1,000 ML BAG IV SCH (10:47)
[2020-03-07] MEDS: HEPARIN/NACL 0.9% 2 UNITS/ML 500 ML IV SCH (10:48)
[2020-03-07] MEDS ORDERED: VANCOMYCIN INJ 1,000 MG in SODIUM CHLORIDE 0.9% 250 ML IV SCH (11:00)
[2020-03-07] MEDS ORDERED: ROCURONIUM 500 MG in SODIUM CHLORIDE 0.9% 500 ML IV PRN (11:09)
[2020-03-07 11:30] LABS: ABG Base Excess -17.2 MMOL/L (-2.5-2.5); ABG HCO3 11.2 MMOL/L (20-26); ABG PO2 95.9 MM HG (80-95); ABG TCO2 11.9 MMOL/L (23-27)
[2020-03-07 11:32] LABS: ABG PH 7.066 (7.35-7.45)
[2020-03-07] MEDS: methylPREDNISolone SOD SUC 40 MG/1 ML VIAL IV SCH ×2 (11:47→16:53)
[2020-03-07] MEDS ORDERED: HYDROCORTISONE 100 MG VIAL IV ONE (12:00)
[2020-03-07] MEDS ORDERED: FLUDROCORTISONE 0.1 MG TABLET PER TUBE SCH (12:00)
[2020-03-07] MEDS ORDERED: ALBUMIN 25% 25 GM in PREMIX 1 EACH IV SCH (12:00)
[2020-03-07 13:18] LABS: ABG HCO3 10.3 MMOL/L (20-26); ABG PCO2 48.3 MM HG (35-48); ABG PO2 91.5 MM HG (80-95); ABG TCO2 11.7 MMOL/L (23-27); Allen Test Positive; Pt O2 Delivery Device Ventilator
[2020-03-07 13:21] LABS: ABG Oxygen Saturation 90.7 % (95-100); ABG PH 6.945 (7.35-7.45)
[2020-03-07] MEDS ORDERED: PHENYLEPHRINE DRIP 40 MG/250 ML PREMIX IV ONE (14:33)
[2020-03-07 14:52] LABS: ABG HCO3 9.2 MMOL/L (20-26); ABG PCO2 58.2 MM HG (35-48); ABG PO2 98.7 MM HG (80-95); ABG TCO2 12.2 MMOL/L (23-27)
[2020-03-07 14:54] LABS: ABG PH 6.908 (7.35-7.45)
[2020-03-07] MEDS ORDERED: VANCOMYCIN INJ 1,000 MG in SODIUM CHLORIDE 0.9% 250 ML IV PRN (15:00)
[2020-03-07 15:27] LABS: Albumin 1.6 G/DL (3.4-5.0); Bilirubin,Direct 0.7 MG/DL (0.0-0.20); Bilirubin,Indirect 1.2 MG/DL (0.0-1.0); Bilirubin,Total 1.9 MG/DL (0.2-1.0); Total Protein 5.3 G/DL (6.4-8.3)
[2020-03-07] MEDS: AZITHROMYCIN INJ 500 MG in SODIUM CHLORIDE 0.9% 250 ML IV SCH (15:30)
[2020-03-07] MEDS ORDERED: EPINEPHrine 1 MG/10 ML SYRINGE IV ONE (15:30)
[2020-03-07] MEDS ORDERED: PHENYLEPHRINE DRIP 40 MG/250 ML PREMIX IV PRN (17:26)
[2020-03-07] MEDS ORDERED: BUDESONIDE 0.5 MG/2 ML NEB RESP TX SCH (19:00)
[2020-03-07] MEDS ORDERED: ARFORMOTEROL 15 MCG/2 ML NEB RESP TX SCH (19:00)
== END 2020-03-07 17:45 | disposition expired | DRG 207 ==
LOC: EDBD → N.ED 18:05 → N.EDINP 22:50 → SUATTDRO 22:50 → N.EDINP 02-27 07:55 → N.CC 02-27 08:54 → N.ICU 03-03 19:49
PROVIDERS: ADMIT Internal Medicine; ATTEND Phlebology